=== PATIENT | male | born 1985 | race Two or more races ===

== ENCOUNTER 2020-10-09 20:41 | Emergency (ER) | payer OTHER, BC ==
[2020-10-09 20:47] VITALS: BP 141/95; PULSE 100; TEMP 98.1; BMI 22.4
[2020-10-09] MEDS ORDERED: LIDOCAINE 5% TOPICAL PATCH TP ONE (21:07)
[2020-10-09] MEDS ORDERED: KETOROLAC TROMETHAMINE 30 MG/1 ML VIAL IM ONE (21:07)
[2020-10-09] MEDS ORDERED: KETOROLAC TROMETHAMINE 30 MG/1 ML VIAL ONE (21:07)
[2020-10-09] MEDS ORDERED: LIDOCAINE 5% TOPICAL PATCH ONE (21:08)
[2020-10-09] MEDS ORDERED: CIPROFLOXACIN HCL 0.3% OPHTH 2.5ML BOTTLE OS ONE (21:43)
[2020-10-09] MEDS ORDERED: LIDOCAINE PATCH REMOVAL MC SCH (22:00)
== END 2020-10-09 22:07 | disposition home or self-care (01) ==
LOC: JERFT 20:41
PROC: 3E0233Z Introduction of Anti-inflammatory into Muscle, Percutaneous Approach (ICD-10-PCS; principal; 2020-10-09)
DX: S49.92XA Unspecified injury of left shoulder and upper arm, initial encounter (principal)
CPT/HCPCS: 73030-TC-LT-FY; 99285-25